=== PATIENT | male | born 1985 | race African-American/Black ===

== ENCOUNTER 2017-07-29 16:19 | Emergency (ER) | payer OTHER ==
[~2017-07-29] VITALS: Ht 180.3 cm; Wt 95.3 kg
[~2017-07-29 16:19] MED LIST: CYCLOBENZAPRINE5 M2 PO; IBUPROFEN800 M1 PO; PERCOCET 5-3251 EACH PO
[2017-07-29 16:27] VITALS: BP 125/86
== END 2017-07-29 20:04 | disposition admitted as inpatient to this hospital (09) ==
LOC: ERH 16:19
DX: M79.662 Pain in left lower leg (principal)